=== PATIENT | male | born 1960 | race Caucasian/White ===

== ENCOUNTER 2016-11-15 10:43 | Observation (INO) ==
--- NOTE | 2016-11-15 11:17 | Emergency Department Note ---
Disposition Clinical Impression: KIRA (obstructive sleep apnea), Hypoxia TIA (transient ischemic attack) Qualifiers: Transient cerebral ischemia type: unspecified Qualified Code(s): G45.9 - Transient cerebral ischemic attack, unspecified Disposition: Admitted As Inpatient Condition: Good Referrals: Adam Zapata MD [Primary Care Provider] - Forms: ED Satisfaction Letter Time of Disposition: 13:06 Neuro HPI - General Chief Complaint: ED Fall Stated Complaint: fall Time Seen by Provider: 11/15/16 10:56 Source: patient Limitations: no limitations Nursing Notes Reviewed: Yes Vital Signs Reviewed: Yes - History of Present Illness HPI Narrative: Patient has a past medical history of COPD, wears night oxygen, diabetes, likely undiagnosed sleep apnea, obesity. Presents for evaluation of 4 falls overnight secondary to intermittent loss of tone in the lower extremity. Patient has had 3 prior episodes over the last year which include loss of tone in the left upper and lower extremity. Patient's recent increase in loss of tone happened 4 times overnight causing now for falls. Patient did not hit his head or lose consciousness however, the convinced him to get evaluation this a.m. Upon arrival the patient is mildly tachycardic and hypoxic with a pulse ox of 88%. Patient states that he has home oxygen that he wears at night secondary to a abnormal sleep study. Patient does not wear daily oxygen secondary the fact that he works for [employer] and is unable to work if he wears oxygen. At this time the patient's neuro symptoms have completely resolved. Patient has no neuro deficits on exam. Patient is currently asymptomatic. - Related Data Home Medications: Home Medications Medication Instructions Recorded Confirmed Oxygen 1 each .ROUTE AD 10/15/16 10/15/16 Albuterol Sulfate [Albuterol 2 puff IH Q4H PRN 11/15/16 11/15/16 Inhaler] Amitriptyline [Elavil] 10 mg PO HS PRN 11/15/16 11/15/16 Fenofibrate Nanocrystallized 160 mg PO DAILY 11/15/16 11/15/16 [Triglide] Fish Oil/Dha/Epa [Fish Oil 1,200 1 each PO BID 11/15/16 11/15/16 mg Fish Oil] Furosemide [Lasix] 20 mg PO DAILY PRN 11/15/16 11/15/16 Insulin ASPART [Novolog Flexpen] 35 unit SQ TIDWM 11/15/16 11/15/16 Insulin Glargine,Hum.rec.anlog 50 unit SQ BID 11/15/16 11/15/16 [Lantus Solostar] Lisinopril [Zestril] 40 mg PO DAILY 11/15/16 11/15/16 Pravastatin Sodium [Pravachol] 40 mg PO HS 11/15/16 11/15/16 Ranitidine HCl [Zantac] 300 mg PO QAM 11/15/16 11/15/16 SitaGLIPtin [Januvia] 100 mg PO DAILY 11/15/16 11/15/16 Allergies/Adverse Reactions: Allergies Allergy/AdvReac Type Severity Reaction Status Date / Time No Known Allergies Allergy Unverified 10/15/16 16:28 All systems ED: reviewed and negative except as stated. Constitutional: Denies: fever, chills Cardiovascular: Denies: chest pain, palpitations Respiratory: Denies: cough, dyspnea, wheezes, hemoptysis Gastrointestinal: Denies: abdominal pain, nausea, vomiting Genitourinary: Denies: urgency, dysuria Musculoskeletal: Denies: back pain, neck pain Neurological: Denies: headache, weakness Psychiatric: Denies: anxiety, depression Endocrine: Denies: fatigue Past Medical History - Past Medical History Medical history: Reports: COPD, diabetes Psychiatric history: Reports: no psych history - Social History Smoking Status: Former smoker Smokeless Tobacco Status: Yes (chew) Alcohol use: Reports: none Drug use: Reports: none Physical Exam - General Limitations: no limitations General appearance: alert, in no apparent distress, obese - Head Head exam: atraumatic, normocephalic - Eye Eye exam: Present: normal appearance, PERRL - ENT ENT exam: normal exam, normal oropharynx - Neck Neck exam: Present: normal inspection, full ROM - Chest Chest inspection: Present: normal inspection, symmetric chest wall rise. Absent : tenderness - Respiratory Respiratory exam: Present: normal lung sounds bilaterally. Absent: respiratory distress, wheezes - Cardiovascular Cardiovascular exam: Present: regular rate, normal rhythm - Abdominal Exam Abdominal exam: Present: soft, Non-Tender - Extremities Exam Extremities exam: Present: normal inspection. Absent: tenderness - Back Exam Back exam: Present: normal inspection. Absent: tenderness - Neurological Exam Neurological exam: Present: alert, oriented X3, CN II-XII intact, normal gait. Absent: motor sensory deficit - Expanded Neurological Exam Patient oriented to: Present: person, place, time Speech: Present: fluid speech Cranial nerves: EOM function (II, III, IV, ): Normal, facial sensation (V): Normal, facial palsy (VII): Normal, gag reflex (IX): Normal, spinal accessory function (XI): Normal, tongue deviation (XII): Normal Cerebellar function: finger to nose: Normal, heel to barron: Normal Cerebellar function: normal gait Motor strength - LUE: 5/5 Motor strength - RUE: 5/5 Motor strength - LLE: 5/5 Motor strength - RLE: 5/5 Sensory exam upper extremity: light touch: Normal Sensory exam lower extremity: light touch: Normal Coma Scale Eye Opening: Spontaneous Coma Scale Motor Response: Obeys Commands Coma Scale Verbal Response: Oriented Coma Scale Total: 15 - Psychiatric Psychiatric exam: Present: normal affect, normal mood - Skin Skin exam: Present: warm, dry, intact Course - Reevaluation(s) Reevaluation #1: The case with the hospitalist Dr. BOUCHER, accepted for admission in stable condition. Vital Signs Temperature 97.9 F 11/15/16 10:48 Pulse Rate 104 11/15/16 10:48 Respiratory Rate 18 11/15/16 10:48 Blood Pressure 137/87 11/15/16 10:48 O2 Sat by Pulse Oximetry 88 11/15/16 10:48 Temperature 97.9 F 11/15/16 10:48 Pulse Rate 114 11/15/16 12:59 Respiratory Rate 24 11/15/16 12:59 Blood Pressure 116/62 11/15/16 12:59 O2 Sat by Pulse Oximetry 95 11/15/16 12:59 Oxygen Delivery Oxygen Delivery Nasal Cannula Neuro Symptoms/Deficit - Medical Records Medical records reviewed: Yes I reviewed the patient's medical records. - Lab Data Lab results reviewed: Yes I reviewed the patient's lab results. Result diagrams: 11/15/16 11:23 11/15/16 11:23 Lab Results 11/15/16 11/15/16 11/15/16 Range/Units 11:23 11:23 11:23 WBC 8.3 (4.3-11.1) K/mcL RBC 5.08 (4.19-5.50) M/mcL Hgb 14.4 (12.9-16.9) g/dL Hct 47.8 (37.5-50.1) % MCV 94.1 (83.0-100.0) fL MCH 28.3 (28.0-33.3) pg MCHC 30.1 L (31.6-35.5) g/dL RDW 15.5 H (11.5-14.5) % Plt Count 127 L (140-400) K/mcL MPV 10.6 (9.4-12.4) fL Immature Gran % 1.3 (0-4) % Seg Neutrophils % 73.9 % Lymphocytes % 18.1 % Monocytes % 5.7 % Eosinophils % 0.8 % Basophils % 0.2 % Neutrophils # 6.1 (1.6-8.9) K/mcL Lymphocytes # 1.5 (0.6-4.6) K/mcL Monocytes # 0.5 (0.0-1.3) K/mcL Eosinophils # 0.1 (0.0-0.6) K/mcL Basophils # 0.0 (0.0-0.2) K/mcL Sodium 141 (136-145) mEq/L Potassium 3.8 (3.5-4.5) mEq/L Chloride 98 (98-109) mEq/L Carbon Dioxide 36 H (19-29) mEq/L BUN 15 (8-26) mg/dL Creatinine 0.79 (0.72-1.25) mg/dL Est GFR ( Amer) > 60 (> 60) Est GFR (Non-Af Amer) > 60 (> 60) BUN/Creatinine Ratio 19 (6-26) Glucose 158 H (70-99) mg/dL Calculated Osmolality 296 (280-300) Calcium 9.1 (8.6-10.8) mg/dL Troponin I 0.02 (0-0.03) ng/mL B-Natriuretic Peptide (0-100) pg/mL 11/15/16 Range/Units 11:25 WBC (4.3-11.1) K/mcL RBC (4.19-5.50) M/mcL Hgb (12.9-16.9) g/dL Hct (37.5-50.1) % MCV (83.0-100.0) fL MCH (28.0-33.3) pg MCHC (31.6-35.5) g/dL RDW (11.5-14.5) % Plt Count (140-400) K/mcL MPV (9.4-12.4) fL Immature Gran % (0-4) % Seg Neutrophils % % Lymphocytes % % Monocytes % % Eosinophils % % Basophils % % Neutrophils # (1.6-8.9) K/mcL Lymphocytes # (0.6-4.6) K/mcL Monocytes # (0.0-1.3) K/mcL Eosinophils # (0.0-0.6) K/mcL Basophils # (0.0-0.2) K/mcL Sodium (136-145) mEq/L Potassium (3.5-4.5) mEq/L Chloride (98-109) mEq/L Carbon Dioxide (19-29) mEq/L BUN (8-26) mg/dL Creatinine (0.72-1.25) mg/dL Est GFR ( Amer) (> 60) Est GFR (Non-Af Amer) (> 60) BUN/Creatinine Ratio (6-26) Glucose (70-99) mg/dL Calculated Osmolality (280-300) Calcium (8.6-10.8) mg/dL Troponin I (0-0.03) ng/mL B-Natriuretic Peptide < 10 (0-100) pg/mL - Radiology Data Radiology results reviewed: Yes I reviewed the patient's radiology results. - EKG Data EKG attestation: Yes I reviewed and interpreted this EKG. EKG results narrative: Patient's EKG shows sinus rhythm with ventricular rate of 76. PA interval 146. QRS 114. Patient has no specific ST elevations or depressions. Patient does have nonspecific ST-T wave changes to leads 3 and aVF and aVL. No previous EKG for comparison. TPA Checklist - LKW: 3-4.5 hrs Add. Contraindications Patient/family understanding: The patient/family members have been counseled and understood the risk, benefit , and alternatives of treatment.
[2016-11-15 11:30] LABS: Basophils % 0.2 %; Eosinophils # 0.1 K/mcL (0.0-0.6); Eosinophils % 0.8 %; Hematocrit 47.8 % (37.5-50.1); Hemoglobin 14.4 g/dL (12.9-16.9); Immature Granulocytes % 1.3 % (0-4); Lymphocytes # 1.5 K/mcL (0.6-4.6); Lymphocytes % 18.1 %; Mean Corpuscular HGB Conc 30.1 g/dL (31.6-35.5); Mean Corpuscular Hemoglobin 28.3 pg (28.0-33.3); Mean Corpuscular Volume 94.1 fL (83.0-100.0); Mean Platelet Volume 10.6 fL (9.4-12.4); Monocytes # 0.5 K/mcL (0.0-1.3); Monocytes % 5.7 %; Neutrophils # 6.1 K/mcL (1.6-8.9); Platelet Count 127 K/mcL (140-400); Red Blood Count 5.08 M/mcL (4.19-5.50); Red Cell Distribution Width 15.5 % (11.5-14.5); Segmented Neutrophils % 73.9 %
[2016-11-15 11:42] LABS: BUN/Creatinine Ratio 19 (6-26); Blood Urea Nitrogen 15 mg/dL (8-26); Calcium 9.1 mg/dL (8.6-10.8); Carbon Dioxide 36 mEq/L (19-29); Chloride 98 mEq/L (98-109); Glucose 158 mg/dL (70-99); Osmolality,Calculated 296 (280-300); Potassium 3.8 mEq/L (3.5-4.5); Sodium 141 mEq/L (136-145); eGFR For African Americans > 60 (> 60); eGFR For Non-African Americans > 60 (> 60)
--- NOTE | 2016-11-15 11:44 | Emergency Department Note ---
START Narrative - START START: I examined this patient and my medical decision-making was reviewed with the FAGOT HEATER HELPER/PA/Advanced Practice Nurse/Resident Physician. I agree with the documented findings, disposition and treatment plan as described except to the extent set forth below. ED attending note: Patient seen with emergency medicine resident Dr Urbano. We independently evaluated the patient. We independently had [id number] contact with the patient. Please see a copy of his note for details of the history and physical, evaluation, management and disposition of this emergency Department patient. Briefly: A 56-year-old male presents with multiple falls and hypoxia. Has likely undiagnosed obstructive sleep apnea. Has had no formal workup for what appears to be syncopal episodes. Patient is neurologically nonfocal at this time. Imaging and blood work are pending. EKG shows some EKG changes but no old EKG available for comparison. Disposition pending but admission anticipated. Provided 35 minutes of critical care service for this patient.
[2016-11-15] MEDS ORDERED: Ipratropium/Albuterol Neb 3 ML IH ONE (12:52)
[2016-11-15] MEDS ORDERED: *HR* HYDROcodone/Acet 5/325 mg TABLET PO PRN (15:10)
[2016-11-15] MEDS ORDERED: Naloxone 0.4 MG/ML INJ IVP PRN (15:10)
[2016-11-15] MEDS ORDERED: *HR* Dextrose 50 % in Water (Syg) 50 ML SYRINGE IVP PRN (15:17)
[2016-11-15] MEDS ORDERED: D5% in Water 1,000 ML IVC PRN (15:17)
[2016-11-15] MEDS ORDERED: Dextrose Gel 15 GM PO PRN ×2 (15:17)
[2016-11-15] MEDS ORDERED: Albuterol 2.5 MG/3 ML NEBULIZER IH PRN (15:18)
--- NOTE | 2016-11-15 15:57 | Internal Med History&Physical ---
Date of Encounter: 11/15/16 Time of Encounter: 14:00 Assessment and Plan (1) Acute and chronic respiratory failure with hypoxia Current visit: Yes Status: Acute Patient has history of COPD uses supplemental oxygen at night only as well as rescue inhalers. Patient has been experiencing frequent falls on presentation he was hypoxic at 88% on 3 L nasal cannula patient SPO2 drops to 88-90% during conversation we will continue with oxygen titrated to maintain SPO2 greater than 92% 2 bronchodilators as needed 3 continuous SPO2 monitoring 4 we will consult pulmonary- spoke with Dr Perdomo who request office to be notified in a.m. consult (2) Recurrent falls Current visit: Yes Status: Acute 1atient has been experiencing repeated falls only at night when he awakens to go to the bathroom or to get something to drink he will feel anxious and then collapsed. Does not lose consciousness, he has a tremor, lower extremity weakness. This has been going on for approximately year however have not [address] of head is negative Suspect possible narcolepsy / cataplexy. 2 he does complain of lower extremity weakness-consulted neurology. Spoke with Dr. Angelo he states he will see patient tomorrow request patient be started on aspirin 3 place patient on fall precautions 4 continue his cardiac monitoring continuous SPO2 monitoring (3) COPD (chronic obstructive pulmonary disease) Current visit: Yes Status: Chronic 1 we will continue with oxygen titrated to maintain SPO2 greater than 92% 2 bronchodilators as needed 3 continuous SPO2 monitoring Qualifiers: COPD type: unspecified COPD Qualified Code(s): J44.9 - Chronic obstructive pulmonary disease, unspecified (4) HTN (hypertension) Current visit: Yes Status: Chronic 1 goal is to maintain systolic less than 140 2 low sodium diet Qualifiers: Hypertension type: essential hypertension Qualified Code(s): I10 - Essential (primary) hypertension (5) Diabetes mellitus Current visit: Yes Status: Chronic 1 patient admits that he is not compliant with diabetes does not check sugars regularly and that blood sugars often range around 200. Accu-Cheks before meals at bedtime with sliding scale as well as basal insulin goal is to maintain postprandial less than 180 2 diabetic diet 3 diabetic education Qualifiers: Diabetes mellitus type: type 2 Diabetes mellitus complication status: without complication Diabetes mellitus exterminator insulin use: with mcfp use Qualified Code(s): E11.9 - Type 2 diabetes mellitus without complications ; Z79.4 - FPC (current) use of insulin (6) KIRA (obstructive sleep apnea) Current visit: Yes Status: Chronic 1 patient has a history of obstructive sleep apnea however he does not wear BiPAP at night. He is on oxygen at 3 L nasal cannula. He is unable to sleep in the bed he sleeps in a recliner. We will continue with oxygen titrating to maintain SPO2 greater 92%. 2 continuous pulse ox continuous cardiac monitoring 3 advise patient not to operate heavy machinery or drive when feeling sleepy during the day (7) DVT prophylaxis Current visit: Yes Status: Acute 1lovenox Internal Medicine - H&P: HPI Chief complaint: Falls Admitted From: Emergency Dept Plans for Post Hospital Care: Home History of present illness: Mr. Yin is a 56 year old male past uncle history of hypertension diabetes COPD and obstructive sleep apnea. According to the patient for approximate 1 year the patient with awaken during the night to either go to the bathroom or get something to drink once he would make it to his destination or as he was on his way he would feel anxious and then collapse. He denies any loss of consciousness or incontinence of bowel or bladder. His has witnessed the patient fall she states that he does have some extremity tremoring. The patient admits to lower extremity weakness and needs assistance to stand Once he is assisted back to standing he returns to baseline. According to the patient he has a history of obstructive sleep apnea he was advised to use CPAP however he is only on 3L oxygen at night. He sleeps in a recliner unable to lie flat He also has history of COPD with inhaler use. He denies using oxygen during the day however his states that he does use his oxygen in the evening when he gets home from work. Patient denies any cough sputum production chest pain nausea vomiting diarrhea fevers or chills. He does admit to exertional shortness of breath. Last night the patient had 4 episodes of falling during the night, he came to the ER today for evaluation. According to ER records Upon arrival the patient was mildly tachycardic and hypoxic with a pulse ox of 88%. Lab work was unremarkable BMP was less than [address] of head was negative for any intracranial abnormalities. EKG nonspecific ST-T wave changes to leads 3 and aVF and aVL. Patient has been admitted for further workup and evaluation. Presently upon assessment patient is alert oriented appropriate follow simple commands cranial nerves II through XII are intact. Lung sounds clear, heart sounds S1 and S2 with no rubs clicks gallops or murmurs noted. No extremity edema noted. SPO2 on 3 L nasal cannula 90% during conversation up to 95% at rest. Patient denies any chest pain or shortness of breath this time. 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[employer].instructed the patient not to drive or operate heavy machinery when feeling fatigued or sleepy I reviewed this case with who agrees with plan Past Med Surg Social Fam HX - Past Medical History Medical history: COPD, diabetes Psychiatric history: no psych history - Social History Smoking Status: Former smoker Smokeless Tobacco Status: Yes (chew) Alcohol use: none Drug use: none - Family History Sister Hx Family Neurologic Disorders: Yes (CVA) Internal Medicine - H&P: Meds Oxygen 1 each .ROUTE AD 10/15/16 [History] Albuterol Sulfate [Albuterol Inhaler] 2 puff IH Q4H PRN 11/15/16 [History] Amitriptyline [Elavil] 10 mg PO HS PRN 11/15/16 [History] Fenofibrate Nanocrystallized [Triglide] 160 mg PO DAILY 11/15/16 [History] Fish Oil/Dha/Epa [Fish Oil 1,200 mg Fish Oil] 1 each PO BID 11/15/16 [History] Furosemide [Lasix] 20 mg PO DAILY PRN 11/15/16 [History] Insulin ASPART [Novolog Flexpen] 35 unit SQ TIDWM 11/15/16 [History] Insulin Glargine,Hum.rec.anlog [Lantus Solostar] 50 unit SQ BID 11/15/16 [ History] Lisinopril [Zestril] 40 mg PO DAILY 11/15/16 [History] Pravastatin Sodium [Pravachol] 40 mg PO HS 11/15/16 [History] Ranitidine HCl [Zantac] 300 mg PO QAM 11/15/16 [History] SitaGLIPtin [Januvia] 100 mg PO DAILY 11/15/16 [History] Allergies No Known Allergies Allergy (Unverified 10/15/16 16:28) All Systems PM: A 10-system review of systems was performed and is negative for pertinent findings except as documented above in the HPI. - Constitutional Constitutional: no chills, no fever(s), no night sweats - EENT Eyes: no change in vision, no discharge, no pain, no photophobia Nose, mouth and throat: no dysphagia, no nasal discharge, no neck pain, no sore throat - Cardiovascular Cardiovascular ROS IM: dyspnea on exertion, orthopnea, syncope, no chest pain, no diaphoresis, no dyspnea, no lightheadedness, no palpitations - Respiratory Respiratory: no cough, no dyspnea, no wheezing, no excessive phlegm production - Gastrointestinal Gastrointestinal: no abdominal pain, no diarrhea, no hematemesis, no hematochezia, no melena, no nausea, no vomiting - Musculoskeletal Musculoskeletal ROS IM: no numbness, no tingling - Integumentary Integumentary IM: no rash, no unusual bruising - Neurological Neurological ROS: frequent falls, weakness, no confusion, no convulsions, no focal weakness, no numbness, no tingling, no tremor(s) - Hematologic/Lymphatic Hematologic/Lymphatic: no easy bruising - Constitutional Vitals: Temp Pulse Resp BP Pulse Ox 97.9 F 81 14 114/68 92 11/15/16 10:48 11/15/16 14:16 11/15/16 14:55 11/15/16 14:55 11/15/16 14:16 General appearance: Present: A&O X 3 - Head Head exam: Present: atraumatic, normocephalic - Neck Neck exam general surgery: Present: supple, trachea midline. Absent: lymphadenopathy - Respiratory Respiratory exam: Present: CTAB. Absent: accessory muscle use, rales, rhonchi, wheezes - Cardiovascular Cardiovascular exam: Present: RRR, +S1, +S2. Absent: diastolic murmur, gallop, rubs, systolic murmur - GI/Abdominal GI/Abdominal exam: Present: normal bowel sounds, soft, no peritoneal signs. Absent: distended, tenderness - Extremities Exam Extremities exam: Present: warm, radial pulses palpable and symetrical. Absent : calf tenderness, cyanotic, pedal edema - Neurological Exam Neurological exam: Present: CN II-XII intact, oriented X3, no focal deficits. Absent: pronater drift, facial droop, speech deficit - Skin Skin exam: Present: dry, intact Internal Med - H&P Results - Labs CBC & Chem 7: 11/15/16 11:23 11/15/16 11:23 - EKG Data EKG shows normal: sinus rhythm - EKG Data Prior EKG available for review: no - Diagnostic Studies CT scan - head Additional comments: Chest X-Ray 11/15/16 11:12 IMPRESSION: Stable chest with no acute cardiopulmonary process. D/ / Rj Alfaro MD / Rj Alfaro MD Interpreting Provider: Rj Alfaro MD Head CT 11/15/16 11:13 IMPRESSION: No acute intracranial abnormality. D/ / Rj Alfaro MD / Rj Alfaro MD Interpreting Provider: Rj Alfaro MD
[2016-11-15 18:22] LABS: Bilirubin,Urine Negative (Negative); Blood,Urine Negative (Negative); Clarity,Urine Clear (Clear); Color,Urine Yellow (Yellow); Glucose,Urine (UA) 100 mg/dL (Normal); Ketones,Urine Negative (Negative); Leukocyte Esterase,Urine Negative (Negative); Nitrite,Urine Negative (Negative); Protein,Urine 30 mg/dL (Neg-Trace); Specific Gravity,Urine 1.027 (1.010-1.025); Urobilinogen,Urine Normal (Normal)
[2016-11-15 18:24] LABS: Bacteria,Urine None Seen per hpf (None-Few); Hyaline Casts,Urine None Seen per lpf (None-Few); Squamous Epithelial Cell,Urine Many per lpf (None-Few); WBC,Urine 0-3 per hpf (0-3)
[2016-11-15] MEDS: Aspirin 325 MG TABLET PO SCH (18:46)
[2016-11-15] MEDS: Insulin LISPRO 300 UNITS/3 ML VIAL SQ SCH ×3 (18:46→21:13)
[2016-11-15] MEDS: Insulin DETEMIR 100 UNIT/ML X5UNITS SQ SCH (21:11)
[2016-11-15] MEDS: (Fish Oil/Dha/Epa [Fish Oil 1,200 Mg Fish Oil] 1 EACH) PO SCH (21:13)
[2016-11-16 01:28] LABS: Basophils % 0.5 %; Eosinophils # 0.1 K/mcL (0.0-0.6); Eosinophils % 1.4 %; Hematocrit 46.6 % (37.5-50.1); Hemoglobin 13.7 g/dL (12.9-16.9); Immature Granulocytes % 1.1 % (0-4); Lymphocytes # 1.6 K/mcL (0.6-4.6); Lymphocytes % 24.2 %; Mean Corpuscular HGB Conc 29.4 g/dL (31.6-35.5); Mean Corpuscular Hemoglobin 28.1 pg (28.0-33.3); Mean Corpuscular Volume 95.5 fL (83.0-100.0); Mean Platelet Volume 11.1 fL (9.4-12.4); Monocytes # 0.5 K/mcL (0.0-1.3); Monocytes % 6.9 %; Neutrophils # 4.4 K/mcL (1.6-8.9); Platelet Count 126 K/mcL (140-400); Red Blood Count 4.88 M/mcL (4.19-5.50); Red Cell Distribution Width 15.9 % (11.5-14.5); Segmented Neutrophils % 65.9 %
[2016-11-16 01:39] LABS: BUN/Creatinine Ratio 21 (6-26); Blood Urea Nitrogen 17 mg/dL (8-26); Carbon Dioxide 36 mEq/L (19-29); Chloride 96 mEq/L (98-109); Potassium 3.7 mEq/L (3.5-4.5); Sodium 141 mEq/L (136-145)
[2016-11-16 01:40] LABS: Calcium 8.9 mg/dL (8.6-10.8); Glucose 200 mg/dL (70-99); Osmolality,Calculated 299 (280-300); eGFR For African Americans > 60 (> 60); eGFR For Non-African Americans > 60 (> 60)
[2016-11-16 02:34] LABS: Hemoglobin A1C 8.5 %
[2016-11-16] MEDS: *HR* Enoxaparin 40 MG/0.4 ML SYRINGE SQ SCH (06:08)
[2016-11-16] MEDS ORDERED: *HR* Metformin 500 MG TABLET PO SCH (08:00)
[2016-11-16] MEDS ORDERED: Perflutren Lipid Microsphere 1.3 ML in 0.9 % Sodium Chloride 8.7 ML IVP ONE (08:06)
[2016-11-16] MEDS: Insulin LISPRO 300 UNITS/3 ML VIAL SQ SCH ×4 (09:17→21:19)
[2016-11-16] MEDS: (Fish Oil/Dha/Epa [Fish Oil 1,200 Mg Fish Oil] 1 EACH) PO SCH (09:18)
[2016-11-16] MEDS: Aspirin 325 MG TABLET PO SCH (09:23)
[2016-11-16] MEDS: Lisinopril 20 MG TABLET PO SCH (09:23)
[2016-11-16] MEDS: Famotidine 20 MG TABLET PO SCH (09:23)
[2016-11-16] MEDS: Insulin DETEMIR 100 UNIT/ML X5UNITS SQ SCH ×2 (09:24→21:17)
[2016-11-16] MEDS: Fenofibrate 54 MG TABLET PO SCH (09:24)
--- NOTE | 2016-11-16 12:08 | ECHO - Doppler Report ---
Echo with Imaging Enhancement Agent Name: Jonathon Yin Date of Study: 11/16/2016 Date: 1960 Ht: 69.0 in Medical Record#: [id number] Age: 56 Wt: 299.0 lb Gender: Male BSA: 2.45 Order #: [id number] Location: [facility] Room #: [id number] Reading Physician: Nikole Jacobson DO Vp Platforms: Magali Negron Ordering Physician: Isabel Duckworth CNP Primary Physician: Adam Zapata MD Indications: falls Impressions: LVEF 65%. Normal left ventricular size and systolic function. Normal diastolic function of the left ventricle. Normal right ventricular size and function. No significant valvular dysfunction. No pulmonary hypertension. Left Ventricular Wall Motion: Rest Echo Findings All wall segments showed normal motion. Findings: Study Quality * Technically sub-optimal due to body habitus. ECG Findings * Normal sinus rhythm. Left Ventricle * Normal left ventricular diastolic function. * Normal LV chamber size, wall thickness and function. * LVEF 65%. * Definity echo contrast was used. Aorta * Normally sized aortic root. Left Atrium * Normal left atrial size. Mitral Valve * Normal mitral valve structure. * No mitral stenosis. * Trace mitral regurgitation. Aortic Valve * No aortic regurgitation. * Aortic valve not well visualized. * No aortic stenosis. Tricuspid Valve * Tricuspid valve not well visualized. * No tricuspid regurgitation. Pulmonic Valve * Pulmonic valve is not well visualized. * No pulmonic stenosis. * Trace pulmonic regurgitation. Pulmonary Artery * Pulmonary artery not well visualized. Right Ventricle * Normal right ventricular structure and function. Right Atrium * Normal right atrial size. Interatrial Septum * Interatrial septum not well evaluated. Pericardium * There is no pericardial effusion present. IVC * The IVC is not well evaluated. History Hypertension Diabetes Myocardial Infarction 11/08/14 a Previous Echo was performed. Contrast: Definity 1.3 ml in 8.7 ml of saline 2 ml. Measurements: BP: 123/ 68 2D Normal Values RVIDd: 3.50 cm <2.7 cm IVSd: 1.70 cm 0.6 - 1.0 cm LVIDd: 5.50 cm 3.7 - 5.6 cm LVPWd: 1.30 cm 0.6 - 1.1 cm LVIDs: 3.50 cm 1.5 - 3.6 cm AO: 2.70 cm < 4.0 cm LA: 3.90 cm 2.0 - 4.0cm %FS: 36.40 cm >25 % LA volume: 47 Mitral Valve Peak E:1.03 m/sec Peak A:.74 m/sec E/A Ratio:1.4 Peak E' Lat Fernandez:15.4 cm/s Peak E' Med Fernandez:7.8 cm/s E/E' Lat Ratio:6.7 E/E' Med Ratio:13.2 Tricuspid Valve TV Regurg Peak Grad: 9.00mmHg TV Regurg Peak Fernandez: 1.48m/sec Updated by Nikole Jacobson on 11/16/2016 12:02:13 PM electronically signed on 11/16/2016 12:02:40 PM with status of Final Wall Motion Shultz: 1=Normal, 2=Hypokinesis, 3=Akinesis, 4=Dyskinesis, 5=Aneurysmal, 6=Hyperkinetic, X=Not Visualized (Blank)=Missing
--- NOTE | 2016-11-16 12:11 | Internal Med Progress Note ---
<Abhi Alva - Last Filed: 11/16/16 12:06> Date of Encounter: 11/16/16 Time of Encounter: 08:15 - Assessment and plan (1) Acute and chronic respiratory failure with hypoxia Current Visit: Yes Status: Acute Assessment and plan: Likely multifactoral in the setting of COPD, KIRA, obesity, and non compliance with co-morbidities. Patient has history of COPD and KIRA; only uses supplemental oxygen at night and rescue inhalers. Patient has been experiencing frequent falls, on presentation he was hypoxic at 88% on 3 L nasal cannula patient. Bronchodilators as needed Continuous SPO2 monitoring ABG pending. Trial of BiPAP tonight, will likely need CPAP (and sleep study) as outpatient. (2) KIRA (obstructive sleep apnea) Current Visit: Yes Status: Chronic Assessment and plan: Family states patient sleeps sitting up in recliner, sometime falls asleep while talking/interacting with others at home. Patient has a history of obstructive sleep apnea however does not wear CPAP/ BiPAP at night. He is on oxygen at 3 L nasal cannula. Continuous pulse ox, continuous cardiac monitoring Patient advised to not operate heavy machinery or drive when feeling sleepy during the day (3) Recurrent falls Current Visit: Yes Status: Acute Assessment and plan: hypoxia vs TIA Pending echo and carotid doppler studies. Hx of KIRA, not on CPAP. (4) Diabetes mellitus Current Visit: Yes Status: Chronic Assessment and plan: Patient states he does not take metformin. Will work to monitor and adjust insulin for better glycemic control. A1C 8.5. Qualifiers: Diabetes mellitus type: type 2 Diabetes mellitus complication status: without complication Diabetes mellitus shelter insulin use: with intermediate manager use Qualified Code(s): E11.9 - Type 2 diabetes mellitus without complications ; Z79.4 - long term care pharmacist (current) use of insulin - Time Spent With Patient 25 - 35 minutes - Subjective Interval history: Mr. Yin appears tired on exam, but easily arousable. He notes Hx of KIRA, however due to noncompliance he is only on O2 at night and as needed. - Constitutional Vitals: Temp Pulse Resp BP Pulse Ox 98.1 F 87 18 123/68 93 11/16/16 04:20 11/16/16 04:20 11/16/16 04:20 11/16/16 04:20 11/16/16 04:58 General appearance: Present: cooperative, A&O X 3, no acute distress, answers questions appropriately - Head Head exam: Present: atraumatic, normocephalic - Eye Eye exam: Present: EOMI, conjuntiva pink - ENT ENT exam: Present: mucous membranes moist - Neck Neck exam general surgery: Present: full ROM - Respiratory Respiratory exam: Present: decreased breath sounds, CTAB - Cardiovascular Cardiovascular exam: Present: tachycardia. Absent: irregular rhythm - GI/Abdominal GI/Abdominal exam: Present: distended, hernia (vs distasis recti). Absent: firm , guarding, tenderness - Extremities Exam Extremities exam: Present: warm. Absent: cyanotic - Neurological Exam Neurological exam: Present: alert, oriented X3, no focal deficits - Psychiatric Psychiatric exam: Present: normal affect, normal mood - Skin Skin exam: Present: dry, normal color, warm Internal Medicine: Result - Labs CBC & Chem 7: 11/16/16 00:55 11/16/16 00:55 Labs: Short CBC 11/16/16 Range/Units 00:55 WBC 6.6 (4.3-11.1) K/mcL Hgb 13.7 (12.9-16.9) g/dL Hct 46.6 (37.5-50.1) % Plt Count 126 L (140-400) K/mcL Neutrophils # 4.4 (1.6-8.9) K/mcL BMP 11/16/16 00:55 Sodium 141 Potassium 3.7 Chloride 96 L Carbon Dioxide 36 H BUN 17 Creatinine 0.80 Glucose 200 H Calcium 8.9 Cardiac Enzymes 11/15/16 11/16/16 Range/Units 18:50 00:55 Troponin I 0.00 0.01 (0-0.03) ng/mL Urine 11/15/16 Range/Units 18:11 Urine Color Yellow (Yellow) Urine Clarity Clear (Clear) Urine pH 6.0 (5.0-8.0) pH Units Ur Specific [place] 1.027 H (1.010-1.025) Urine Protein 30 H (Neg-Trace) mg/dL Urine Glucose (UA) 100 H (Normal) mg/dL Consult Discharge Plan - Plan Referrals: Adam Zapata MD [Primary Care Provider] - <Mukund Santiago - Last Filed: 11/16/16 16:53> Date of Encounter: 11/16/16 - Assessment and plan (1) Acute on chronic respiratory failure with hypercapnia Current Visit: Yes Status: Acute (2) Acute and chronic respiratory failure with hypoxia Current Visit: Yes Status: Acute (3) KIRA (obstructive sleep apnea) Current Visit: Yes Status: Chronic (4) COPD (chronic obstructive pulmonary disease) Current Visit: Yes Status: Suspected Qualifiers: COPD type: emphysema Emphysema type: panlobular Qualified Code(s): J43.1 - Panlobular emphysema (5) HTN (hypertension) Current Visit: Yes Status: Chronic Qualifiers: Hypertension type: essential hypertension Qualified Code(s): I10 - Essential (primary) hypertension (6) Diabetes mellitus Current Visit: Yes Status: Chronic Qualifiers: Diabetes mellitus type: type 2 Diabetes mellitus complication status: without complication Diabetes mellitus intermediate manager insulin use: with intermediate manager use Qualified Code(s): E11.9 - Type 2 diabetes mellitus without complications ; Z79.4 - long term care pharmacist (current) use of insulin - Constitutional Vitals: Temp Pulse Resp BP Pulse Ox 98.1 F 76 22 125/73 98 11/16/16 04:20 11/16/16 16:00 11/16/16 16:14 11/16/16 16:00 11/16/16 16:14 Internal Medicine: Result - Labs CBC & Chem 7: 11/16/16 00:55 11/16/16 00:55 Labs: Short CBC 11/16/16 Range/Units 00:55 WBC 6.6 (4.3-11.1) K/mcL Hgb 13.7 (12.9-16.9) g/dL Hct 46.6 (37.5-50.1) % Plt Count 126 L (140-400) K/mcL Neutrophils # 4.4 (1.6-8.9) K/mcL BMP 11/16/16 00:55 Sodium 141 Potassium 3.7 Chloride 96 L Carbon Dioxide 36 H BUN 17 Creatinine 0.80 Glucose 200 H Calcium 8.9 Cardiac Enzymes 11/15/16 11/16/16 Range/Units 18:50 00:55 Troponin I 0.00 0.01 (0-0.03) ng/mL Urine 11/15/16 Range/Units 18:11 Urine Color Yellow (Yellow) Urine Clarity Clear (Clear) Urine pH 6.0 (5.0-8.0) pH Units Ur Specific Gap 1.027 H (1.010-1.025) Urine Protein 30 H (Neg-Trace) mg/dL Urine Glucose (UA) 100 H (Normal) mg/dL - ABG Interpretation ABG results: ABG ABG pH 7.29 pH Units (7.32-7.45) L 11/16/16 13:15 ABG pCO2 95 mmHg (35-45) H* 11/16/16 13:15 ABG pO2 66 mmHg (85-104) L 11/16/16 13:15 ABG O2 Saturation 90 % (95-98) L 11/16/16 13:15 - Attending Attestation I examined this patient and my medical decision-making was reviewed with the Resident Physician on 11/16/16. I agree with the documented findings, disposition and treatment plan as described except to the extent set forth below. Mr. Yin is currently admitted for acute hypoxic resp failure. He is moderate to high risk due to potential for worsening respiratory status. Mr. Yin denies issues and wants to go home. He had abg showing acute hypercarbic resp failure. He is willing to try bipap with large facemask. No fever or chills. No GI symptoms. Exam Alert. Comfortable No wheeze Heart reg I/P 1. Resp failure 2. KIRA 3. DM Further diagnoses and plan as above.
[2016-11-16 13:20] LABS: ABG Base Excess 14.1 mEq/L (-2.0 to 3.0); ABG HCO3 45.7 mEQ/L (21-27); ABG Oxygen Saturation 90 % (95-98); ABG PH 7.29 pH Units (7.32-7.45); ABG PO2 66 mmHg (85-104); ABG TCO2 48.6 mEq/L (20-26)
[2016-11-16 13:23] LABS: ABG PCO2 95 mmHg (35-45); Blood Gas FiO2 32 %; Blood Gas Liter Flow 3 L/MIN
--- NOTE | 2016-11-16 16:00 | Neurology - Consult Note ---
Date of Encounter: 11/16/16 Time of Encounter: 15:58 Assessment and Plan (1) Recurrent falls Current Visit: Yes Status: Acute My differential in this case might include a subtle lacunar infarct, but also like to rule out the possibility of hypnic jerks. Would also like to consider the possibility of myoclonic jerks secondary to elevated CO2. CT scan of the brain was negative. I would like to obtain an MRI scan of the brain with diffusion imaging. I did strongly encourage Mr. Yin to be compliant with his sleep apnea device. I will reevaluate him tomorrow. History of Present Illness HPI: Mr. Yin is a 56 year old male who is being seen for neurologic evaluation secondary to recent episodes of falls. He informs me that all of last year he had maybe 1 or 2 falls. However this Wednesday "he states that he had about 4 falls. He denies any arm or leg weakness. Denies decreased levels of consciousness. He denied any numbness or tingling or weakness of the face arms or legs. Denies any speech difficulty. He does state that he has diabetic neuropathy. She also complains of jerking before he falls. He does not lose consciousness however. He states that he is to call so that he can reach something to pull himself up. The episodes are fairly abrupt without warning. He has been diagnosed with sleep apnea however has not been compliant with wearing his CPAP. He denies any difficulty with urinary incontinence. The episodes tend to occur primarily at night when he gets up perhaps to go to the bathroom. He does notice she chokes sometimes as he is falling to sleep. Blood gas revealed that his CO2 was significantly elevated at 92. He is awake and alert, gives a very lucid history. CT scan of the brain reveals no acute abnormalities. Past Med Surg Social Fam HX - Past Medical History Medical history: COPD, diabetes Psychiatric history: no psych history - Social History Smoking Status: Former smoker Smokeless Tobacco Status: Yes (chew) Alcohol use: none Drug use: none - Family History Sister Hx Family Neurologic Disorders: Yes (CVA) Medications and Allergies Oxygen 1 each .ROUTE AD 10/15/16 [History] Albuterol Sulfate [Albuterol Inhaler] 2 puff IH Q4H PRN 11/15/16 [History] Amitriptyline [Elavil] 10 mg PO HS PRN 11/15/16 [History] Fenofibrate Nanocrystallized [Triglide] 160 mg PO DAILY 11/15/16 [History] Fish Oil/Dha/Epa [Fish Oil 1,200 mg Fish Oil] 1 each PO BID 11/15/16 [History] Furosemide [Lasix] 20 mg PO DAILY PRN 11/15/16 [History] Insulin ASPART [Novolog Flexpen] 35 unit SQ TIDWM 11/15/16 [History] Insulin Glargine,Hum.rec.anlog [Lantus Solostar] 50 unit SQ BID 11/15/16 [ History] Lisinopril [Zestril] 40 mg PO DAILY 11/15/16 [History] Pravastatin Sodium [Pravachol] 40 mg PO HS 11/15/16 [History] Ranitidine HCl [Zantac] 300 mg PO QAM 11/15/16 [History] SitaGLIPtin [Januvia] 100 mg PO DAILY 11/15/16 [History] Allergies No Known Allergies Allergy (Unverified 10/15/16 16:28) All Systems: A 10-system review of systems was performed and is negative for pertinent findings except as documented above in the HPI. Review of Systems: Temporal review of systems is consistent with a history of present illness and is otherwise negative. Physical Examination - Vital Signs Vital Signs: Initial Vital Signs Temp Pulse Resp BP Pulse Ox 97.9 F 104 18 137/87 88 11/15/16 10:48 11/15/16 10:48 11/15/16 10:48 11/15/16 10:48 11/15/16 10:48 - Neurologic Detailed motor examination: full strength in all major muscle groups Motor examination - right side: 5/5: deltoids, biceps, triceps, wrist flexion, wrist extension, desk top publisher, hip flexors, tibialis Anterior, quadriceps, toe extension (EHL), plantarflexion Motor examination - left side: 5/5: deltoids, biceps, triceps, wrist flexion, wrist extension, hip flexors, desk top publisher, quadriceps, tibialis Anterior, toe extension (EHL), plantarflexion Reflexes: Biceps: 2+, Triceps: 2+, Brachioradialis: 2+, Patella: 0, Achilles: 0 Mental Status Examination: awake, alert, oriented to person, oriented to place, oriented to time, follows commands appropriately, answers questions appropriately, no agnosia, no aphasia, no aproxia Cranial nerve examination: PERRL, EOMI, visual dacosta intact, corneal reflexes brisk symmetrically, sensory to face intact, mastication intact, no facial asymmetry is present, no dysarthria, hearing is intact symmetrically, soft palate elevates bilaterally upon phonation, gag reflex intact, flexes SCM and trapezius muscles symmetrically with full power, tongue protrudes midline, no atrophy or facial fasiculations present Cerebellar examination: no dysmetria, performs finger to nose and heel to barron symmetrically without ataxia, no gait ataxia, no truncal ataxia, no difficulty with rapid alternating movements Results - Laboratory Findings CBC and BMP: 11/16/16 00:55 11/16/16 00:55 Abnormal lab findings: Abnormal lab results MCHC 29.4 g/dL (31.6-35.5) L 11/16/16 00:55 RDW 15.9 % (11.5-14.5) H 11/16/16 00:55 Plt Count 126 K/mcL (140-400) L 11/16/16 00:55 ABG pH 7.29 pH Units (7.32-7.45) L 11/16/16 13:15 ABG pCO2 95 mmHg (35-45) H* 11/16/16 13:15 ABG pO2 66 mmHg (85-104) L 11/16/16 13:15 ABG HCO3 45.7 mEQ/L (21-27) H 11/16/16 13:15 ABG Total CO2 48.6 mEq/L (20-26) H 11/16/16 13:15 ABG O2 Saturation 90 % (95-98) L 11/16/16 13:15 ABG Base Excess 14.1 mEq/L (-2.0 to 3.0) H 11/16/16 13:15 Chloride 96 mEq/L (98-109) L 11/16/16 00:55 Carbon Dioxide 36 mEq/L (19-29) H 11/16/16 00:55 Glucose 200 mg/dL (70-99) H 11/16/16 00:55 POC Glucose 222 (58-89) H 11/15/16 16:27 Hemoglobin A1c 8.5 % (-5.6) H 11/16/16 00:55 Ur Specific [place] 1.027 (1.010-1.025) H 11/15/16 18:11 Urine Protein 30 mg/dL (Neg-Trace) H 11/15/16 18:11 Urine Glucose (UA) 100 mg/dL (Normal) H 11/15/16 18:11 Urine Microscopic RBC 3-5 per hpf (0-3) H 11/15/16 18:11 Ur Squamous Epith Cells Many per lpf (None-Few) H 11/15/16 18:11 Consult Discharge Plan - Plan Referrals: Adam Zapata MD [Primary Care Provider] -
--- NOTE | 2016-11-16 17:03 | Electrocardiograph Report ---
[place] [id number] Test Date: 2016-11-15 Pat Name: Jonathon Yin Department: 105 Room: 2N2 Gender: M Plant Maintenance Manager: : 1960 Requested By: Giuliano Urbano Order Number: [id number] Reading MD: Dg Costello Measurements Intervals [place] Rate: 76 P: 47 [place]: 146 QRS: 4 QRSD: 114 T: 44 QT: 377 QTc: 408 Interpretive Statements SINUS RHYTHM INFERIOR MYOCARDIAL INFARCTION, PROBABLY OLD Electronically Signed On 11-16-2016 17:01:19 EDT by Dg Costello
[2016-11-17 05:44] LABS: BUN/Creatinine Ratio 17 (6-26); Blood Urea Nitrogen 12 mg/dL (8-26); Carbon Dioxide 36 mEq/L (19-29); Chloride 98 mEq/L (98-109); Glucose 198 mg/dL (70-99); Osmolality,Calculated 297 (280-300); Potassium 4.2 mEq/L (3.5-4.5); Sodium 141 mEq/L (136-145); eGFR For African Americans > 60 (> 60); eGFR For Non-African Americans > 60 (> 60)
[2016-11-17] MEDS: *HR* Enoxaparin 40 MG/0.4 ML SYRINGE SQ SCH (06:33)
[2016-11-17] MEDS: Aspirin 325 MG TABLET PO SCH (08:05)
[2016-11-17] MEDS: Famotidine 20 MG TABLET PO SCH (08:05)
[2016-11-17] MEDS: Fenofibrate 54 MG TABLET PO SCH (08:05)
[2016-11-17] MEDS: Insulin LISPRO 300 UNITS/3 ML VIAL SQ SCH ×4 (08:05→20:32)
[2016-11-17] MEDS: Insulin DETEMIR 100 UNIT/ML X5UNITS SQ SCH ×2 (08:06→20:30)
[2016-11-17] MEDS: Lisinopril 20 MG TABLET PO SCH (08:06)
--- NOTE | 2016-11-17 09:56 | Carotid Imaging Report ---
Carotid Duplex Patient Name:Jonathon Yin Order Number:[id number] Procedure Date:11/16/2016 Date:9Age:56 yrs Gender:Male Location:[facility] Room #: 2NE32 Registered Occupational Therapist:Magali Negron Referring MD:Isabel Duckworth CNP hazardous waste material technician:Adam Zapata MD Reading MD:Pranay Keith MD Risk Factors Yes/No Hypertension Yes Diabetes Yes Smoker Previous Yes Impressions: Findings: Bilateral carotid system has nonstenotic plaque. Recommendations: After imaging the patient returned to their room. Findings Carotid Duplex: Right: The right proximal common carotid artery has a PSV of 94 cm/s and a EDV of 25 cm/s. The right mid common carotid artery has a PSV of 114 cm/s and a EDV of 33 cm/s. The right distal common carotid artery has a PSV of 97 cm/s and a EDV of 30 cm/s. There is nonstenotic plaque in the right bifurcation with a PSV of 65 cm/s and a EDV of 23 cm/s. There is smooth heterogeneous plaque. The right proximal internal carotid artery has a PSV of 92 cm/s and a EDV of 39 cm/s. There is 40-59% stenosis in the right mid internal carotid artery with a PSV of 162 cm/s and a EDV of 64 cm/s. There is smooth heterogeneous plaque. The right distal internal carotid artery has a PSV of 105 cm/s and a EDV of 46 cm/s. The right eca has a PSV of 119 cm/s and a EDV of 11 cm/s. The right vertebral artery has a PSV of 94 cm/s and a EDV of 35 cm/s. Left: The left proximal common carotid artery has a PSV of 109 cm/s and a EDV of 29 cm/s. The left mid common carotid artery has a PSV of 95 cm/s and a EDV of 25 cm/s. The left distal common carotid artery has a PSV of 92 cm/s and a EDV of 30 cm/s. There is nonstenotic plaque in the left bifurcation with a PSV of 103 cm/s and a EDV of 36 cm/s. There is smooth heterogeneous plaque. The left proximal internal carotid artery has a PSV of 89 cm/s and a EDV of 35 cm/s. The left mid internal carotid artery has a PSV of 80 cm/s and a EDV of 27 cm/s. The left distal internal carotid artery has a PSV of 109 cm/s and a EDV of 58 cm/s. The left eca has a PSV of 126 cm/s and a EDV of 14 cm/s. The left vertebral artery has a PSV of 94 cm/s and a EDV of 43 cm/s. Carotid Results Right PSV EDV Assessment Proximal CCA 94 25 Mid CCA 114 33 Distal CCA 97 30 Bifurcation 65 23 Proximal ICA 92 39 Mid ICA 162 64 Distal ICA 105 46 ECA 119 11 Vertebral Artery 94 35 Left PSV EDV Assessment Proximal CCA 109 29 Mid CCA 95 25 Distal CCA 92 30 Bifurcation 103 36 Proximal ICA 89 35 Mid ICA 80 27 Distal ICA 109 58 ECA 126 14 Vertebral Artery 94 43 Ratio's Right ICA/CCA Ratio: 1.40 ICA/CCA Values: 162/114 Left ICA/CCA Ratio: 1.14 ICA/CCA Values: 109/95 Updated by Pranay Keith MD on 11/17/2016 9:49:27 AM electronically signed on 11/17/2016 9:51:15 AM with status of Final
--- NOTE | 2016-11-17 14:39 | Internal Med Progress Note ---
<Abhi Alva - Last Filed: 11/17/16 17:15> Date of Encounter: 11/17/16 Time of Encounter: 10:00 - Assessment and plan (1) Acute and chronic respiratory failure with hypoxia Current Visit: Yes Status: Acute Assessment and plan: Likely multifactoral in the setting of COPD, KIRA, obesity, and non compliance with co-morbidities. Patient has history of COPD and KIRA; only uses supplemental oxygen at night and rescue inhalers. Patient has been experiencing frequent falls, on presentation he was hypoxic at 88%. Bronchodilators as needed Continuous SPO2 monitoring Supplemental oxygen, titrate to saturation greater than 90%. ABG showing respiratory acidosis with some compensation. pCO2 95 (11/16/16). Repeat today with pCO2 of 76. Feeling better with use of BiPAP, will hopefully qualify patient tonight and possibly discharge tomorrow. (2) KIRA (obstructive sleep apnea) Current Visit: Yes Status: Chronic Assessment and plan: Family states patient sleeps sitting up in recliner, sometime falls asleep while talking/interacting with others at home. Patient has a history of obstructive sleep apnea however does not wear CPAP/ BiPAP at night. He is on oxygen at 3 L nasal cannula. Continuous pulse ox, continuous cardiac monitoring See respiratory failure for complete plan. (3) Recurrent falls Current Visit: Yes Status: Acute Assessment and plan: Likely secondary to hypercapnia and hypoxia. Echo negative for acute findings. Brain MRI negative. Carotid doppler with 40-59% stenosis in right mid interal carotid (smooth hetergeneous plaque). Seen by Neurology, improving, recommend follow up if needed. (4) Diabetes mellitus Current Visit: Yes Status: Chronic Assessment and plan: Patient states he does not take metformin. Will work to monitor and adjust insulin for better glycemic control. A1C 8.5. Qualifiers: Diabetes mellitus type: type 2 Diabetes mellitus complication status: without complication Diabetes mellitus fci insulin use: with buttermilk drier operator use Qualified Code(s): E11.9 - Type 2 diabetes mellitus without complications ; Z79.4 - correction (current) use of insulin - Time Spent With Patient less than 15 minutes - Subjective Interval history: Mr. Yin appears more awake and alert this AM. He notes that he slept well with the BiPAP. Occasional jerking, that seems to be improving per patient and spouse. - Constitutional Vitals: Temp Pulse Resp BP Pulse Ox 98.4 F 71 16 119/73 92 11/17/16 11:54 11/17/16 11:54 11/17/16 11:54 11/17/16 11:54 11/17/16 11:54 General appearance: Present: cooperative, A&O X 3, no acute distress, obese, answers questions appropriately - Head Head exam: Present: atraumatic, normocephalic - Eye Eye exam: Present: EOMI, conjuntiva pink - ENT ENT exam: Present: mucous membranes moist - Neck Neck exam general surgery: Present: full ROM - Respiratory Respiratory exam: Present: CTAB - Cardiovascular Cardiovascular exam: Present: RRR - GI/Abdominal GI/Abdominal exam: Present: distended, soft. Absent: firm, guarding, tenderness - Extremities Exam Extremities exam: Present: warm. Absent: cyanotic - Neurological Exam Neurological exam: Present: alert, oriented X3, no focal deficits - Psychiatric Psychiatric exam: Present: normal affect, normal mood - Skin Skin exam: Present: normal color, warm. Absent: cyanosis, rash Internal Medicine: Result - Labs CBC & Chem 7: 11/16/16 00:55 11/17/16 04:45 Labs: BMP 11/17/16 04:45 Sodium 141 Potassium 4.2 Chloride 98 Carbon Dioxide 36 H BUN 12 Creatinine 0.71 L Glucose 198 H Calcium 9.0 - ABG Interpretation ABG results: ABG ABG pH 7.29 pH Units (7.32-7.45) L 11/16/16 13:15 ABG pCO2 95 mmHg (35-45) H* 11/16/16 13:15 ABG pO2 66 mmHg (85-104) L 11/16/16 13:15 ABG O2 Saturation 90 % (95-98) L 11/16/16 13:15 - Impressions Impressions Brain MRI 11/16/16 16:06 IMPRESSION: 1. No acute intracranial abnormality. 2. Mild chronic white matter microvascular ischemic changes. D/ / Alec Morales MD / Alec Morales MD Interpreting Provider: Alec Morales MD Consult Discharge Plan - Plan Referrals: Adam Zapata MD [Primary Care Provider] - 11/25/16 8:00 am <Timothy Hsieh P - Last Filed: 11/17/16 18:26> Date of Encounter: 11/17/16 - Constitutional Vitals: Temp Pulse Resp BP Pulse Ox 98.1 F 79 16 125/68 92 11/17/16 15:56 11/17/16 15:56 11/17/16 15:56 11/17/16 15:56 11/17/16 15:56 Internal Medicine: Result - Labs CBC & Chem 7: 11/16/16 00:55 11/17/16 04:45 Labs: BMP 11/17/16 04:45 Sodium 141 Potassium 4.2 Chloride 98 Carbon Dioxide 36 H BUN 12 Creatinine 0.71 L Glucose 198 H Calcium 9.0 - ABG Interpretation ABG results: ABG ABG pH 7.34 pH Units (7.32-7.45) 11/17/16 16:40 ABG pCO2 76 mmHg (35-45) H* 11/17/16 16:40 ABG pO2 71 mmHg (85-104) L 11/17/16 16:40 ABG O2 Saturation 93 % (95-98) L 11/17/16 16:40 - Impressions Impressions Brain MRI 11/16/16 16:06 IMPRESSION: 1. No acute intracranial abnormality. 2. Mild chronic white matter microvascular ischemic changes. D/ / Alec Morales MD / Alec Morales MD Interpreting Provider: Alec Morales MD - Attending Attestation I examined this patient and my medical decision-making was reviewed with the PROPULSION GENERATOR REPAIRER/PA/Advanced Practice Nurse/Resident Physician. I agree with the documented findings, disposition and treatment plan as described except to the extent set forth below.
--- NOTE | 2016-11-17 15:52 | Neurology Progress Note ---
Date of Encounter: 11/17/16 Time of Encounter: 15:50 Assessment and Plan (1) Recurrent falls Current Visit: Yes Status: Acute I am convinced that most of the problems that on this gentleman had that resulted in this admission were due to complications of hypercapnia. I did, once again stressed compliance. At this juncture I will hold off on starting any antiepileptic medications. If he has other falls or jerks then I might anticipate a trial of valproate. Otherwise I will reevaluate him at your request. Subjective Interval history: The chart was reviewed, patient was seen and examined. Patient just walking out of the bathroom holding his IV pole. Ambulate without difficulty. No exertional dyspnea identified. Patient apparently had some somnolence last night. He denies any further jerking episodes of falls. Denies any headaches today, denies any shortness of breath or any other difficulty. MRI scan of the brain does not reveal evidence of any acute infarct. No other acute processes identified. Objective - Constitutional Vitals: Temp Pulse Resp BP Pulse Ox 98.4 F 71 16 119/73 92 11/17/16 11:54 11/17/16 11:54 11/17/16 11:54 11/17/16 11:54 11/17/16 11:54 - Neurological Exam Motor Examination: Present: full strength in all major muscle groups Motor examination - right side: 5/5: deltoids, biceps, triceps, wrist flexion, wrist extension, risk mgr, hip flexors, tibialis Anterior, quadriceps, toe extension (EHL), plantarflexion Motor examination - left side: 5/5: deltoids, biceps, triceps, wrist flexion, wrist extension, hip flexors, risk mgr, quadriceps, tibialis Anterior, toe extension (EHL), plantarflexion Sensation intact: Present: intact Reflex and gait examination: normal gait Mental Status Examination: Present: awake, alert, oriented to person, oriented to place, oriented to time, follows commands appropriately, answers questions appropriately, no agnosia, no aphasia, no aproxia Cranial nerve examination: Present: PERRL, EOMI, visual dacosta intact, corneal reflexes brisk symmetrically, sensory to face intact, mastication intact, no facial asymmetry is present, no dysarthria, hearing is intact symmetrically, soft palate elevates bilaterally upon phonation, gag reflex intact, flexes SCM and trapezius muscles symmetrically with full power, tongue protrudes midline, no atrophy or facial fasiculations present Cerebellar examination: Present: no dysmetria, performs finger to nose and heel to barron symmetrically without ataxia, no gait ataxia, no truncal ataxia, no difficulty with rapid alternating movements Results - Laboratory Findings CBC and BMP: 11/16/16 00:55 11/17/16 04:45 Abnormal lab findings: Abnormal lab results MCHC 29.4 g/dL (31.6-35.5) L 11/16/16 00:55 RDW 15.9 % (11.5-14.5) H 11/16/16 00:55 Plt Count 126 K/mcL (140-400) L 11/16/16 00:55 ABG pH 7.29 pH Units (7.32-7.45) L 11/16/16 13:15 ABG pCO2 95 mmHg (35-45) H* 11/16/16 13:15 ABG pO2 66 mmHg (85-104) L 11/16/16 13:15 ABG HCO3 45.7 mEQ/L (21-27) H 11/16/16 13:15 ABG Total CO2 48.6 mEq/L (20-26) H 11/16/16 13:15 ABG O2 Saturation 90 % (95-98) L 11/16/16 13:15 ABG Base Excess 14.1 mEq/L (-2.0 to 3.0) H 11/16/16 13:15 Carbon Dioxide 36 mEq/L (19-29) H 11/17/16 04:45 Creatinine 0.71 mg/dL (0.72-1.25) L 11/17/16 04:45 Glucose 198 mg/dL (70-99) H 11/17/16 04:45 POC Glucose 277 (58-89) H 11/17/16 11:58 Hemoglobin A1c 8.5 % (-5.6) H 11/16/16 00:55 Ur Specific [place] 1.027 (1.010-1.025) H 11/15/16 18:11 Urine Protein 30 mg/dL (Neg-Trace) H 11/15/16 18:11 Urine Glucose (UA) 100 mg/dL (Normal) H 11/15/16 18:11 Urine Microscopic RBC 3-5 per hpf (0-3) H 11/15/16 18:11 Ur Squamous Epith Cells Many per lpf (None-Few) H 11/15/16 18:11 Consult Discharge Plan - Plan Referrals: Adam Zapata MD [Primary Care Provider] - 11/25/16 8:00 am
[2016-11-17] MEDS: Acetaminophen 325 MG TABLET PO PRN (16:46)
[2016-11-17 16:49] LABS: ABG Base Excess 11.6 mEq/L (-2.0 to 3.0); ABG Oxygen Saturation 93 % (95-98); ABG PH 7.34 pH Units (7.32-7.45); ABG PO2 71 mmHg (85-104); ABG TCO2 43.3 mEq/L (20-26)
[2016-11-17 16:56] LABS: ABG PCO2 76 mmHg (35-45)
[2016-11-17 16:57] LABS: Blood Gas FiO2 31 %
[2016-11-18] MEDS: *HR* Enoxaparin 40 MG/0.4 ML SYRINGE SQ SCH (06:00)
[2016-11-18 06:10] LABS: ABG Base Excess 13.5 mEq/L (-2.0 to 3.0); ABG HCO3 44.3 mEQ/L (21-27); ABG Oxygen Saturation 91 % (95-98); ABG PH 7.32 pH Units (7.32-7.45); ABG PO2 66 mmHg (85-104); ABG TCO2 46.9 mEq/L (20-26)
[2016-11-18 06:13] LABS: ABG PCO2 86 mmHg (35-45); Blood Gas FiO2 32 %
[2016-11-18 07:27] VITALS: BP 139/73
[2016-11-18] MEDS: Fenofibrate 54 MG TABLET PO SCH (08:31)
[2016-11-18] MEDS: Famotidine 20 MG TABLET PO SCH (08:31)
[2016-11-18] MEDS: Insulin LISPRO 300 UNITS/3 ML VIAL SQ SCH ×2 (08:32→11:49)
[2016-11-18] MEDS: Insulin DETEMIR 100 UNIT/ML X5UNITS SQ SCH (08:32)
[2016-11-18] MEDS: Lisinopril 20 MG TABLET PO SCH (08:32)
[2016-11-18] MEDS: Aspirin 325 MG TABLET PO SCH (08:32)
[2016-11-18] MEDS: Acetaminophen 325 MG TABLET PO PRN (08:32)
--- NOTE | 2016-11-18 08:43 | Discharge Summary ---
<Abhi Alva - Last Filed: 11/19/16 00:57> Date of Encounter: 11/19/16 Time of Encounter: 09:10 - Discharge Diagnosis (1) Acute and chronic respiratory failure with hypoxia Priority: Primary Status: Acute (2) KIRA (obstructive sleep apnea) Priority: Secondary Status: Chronic (3) Recurrent falls Priority: Secondary Status: Acute (4) Diabetes mellitus Priority: Secondary Status: Chronic Qualifiers: Diabetes mellitus type: type 2 Diabetes mellitus complication status: without complication Diabetes mellitus keno terminal operator insulin use: with mcfp use Qualified Code(s): E11.9 - Type 2 diabetes mellitus without complications ; Z79.4 - keno terminal operator (current) use of insulin - Discharge Medications Home Medications: Oxygen 1 each .ROUTE AD 10/15/16 [History] Albuterol Sulfate [Albuterol Inhaler] 2 puff IH Q4H PRN 11/15/16 [History] Amitriptyline [Elavil] 10 mg PO HS PRN 11/15/16 [History] Fenofibrate Nanocrystallized [Triglide] 160 mg PO DAILY 11/15/16 [History] Fish Oil/Dha/Epa [Fish Oil 1,200 mg Fish Oil] 1 each PO BID 11/15/16 [History] Furosemide [Lasix] 20 mg PO DAILY PRN 11/15/16 [History] Insulin ASPART [Novolog Flexpen] 35 unit SQ TIDWM 11/15/16 [History] Insulin Glargine,Hum.rec.anlog [Lantus Solostar] 50 unit SQ BID 11/15/16 [ History] Lisinopril [Zestril] 40 mg PO DAILY 11/15/16 [History] Pravastatin Sodium [Pravachol] 40 mg PO HS 11/15/16 [History] Ranitidine HCl [Zantac] 300 mg PO QAM 11/15/16 [History] SitaGLIPtin [Januvia] 100 mg PO DAILY 11/15/16 [History] Allergies/Adverse Reactions: Allergies No Known Allergies Allergy (Unverified 10/15/16 16:28) Procedures/tests Complete & Pending: Procedures Performed prior 72 hours Category Date Time Status MR head/brain wo con [MR] Stat MRI 11/16/16 16:06 Completed EV carotid duplex imaging BI Routine Y 05/22/17 17:24 Completed EV echocardiogram w enhance Routine Y 11/16/16 17:23 Completed Date of admission: 11/15/16 14:50 Primary care physician: Adam Zapata MD Consults: 11/15/16 15:24 Consult to Neurology [CONS] Routine Consulting Provider: [facility] Reason for Consult: falls,lower extremity weakness Time Notified: 15:27 Call Completed: Yes 11/15/16 15:30 Consult to Pulmonology [CONS] Routine Consulting Provider: [facility] Reason for Consult: KIRA, hypoxia Time Notified: 15:31 Call Completed: Yes Discharging clinician: Timothy Hsieh Anticipated date of discharge: 11/18/16 - Patient Status Disposition: Home, Self-Care Condition: Good Functional capacity at discharge: independent ambulation Overall status at discharge: patient is progressing back to baseline - Discharge Instructions Instructions: Transient Ischemic Attack (DC), Transient Ischemic Attack (GEN), Sleep Apnea Syndrome (DC), Sleep Apnea Syndrome (GEN), Diabetes Mellitus Type 2 in Adults (DC), Fall Prevention for Older Adults (GEN), Chronic Hypertension (DC ), Sleep Apnea Syndrome, Admin Secretary (GEN), Transient Ischemic Attack, Admin Secretary (GEN) Follow Up With: Adam Zapata MD [Primary Care Provider] - 11/25/16 8:00 am Forms: Inpatient Work/School Release Additional Instructions: Use BiPAP at night or while napping. Follow up with PCP in 5-7 days or sooner if needed. Seek medical care, inform family to seek care for you, if you develop respiratory difficulty, become confused, or are abnormally drowsy/difficult to wake. - Diet and Activity Activity: increase activity as tolerated Diet: diabetic diet Interval History: Stable on 2L supplemental oxygen, no acute distress. Patient feels comfortable with discharge home. Hospital course: Mr. Yin is a 56 year old male with PMHx of hypertension, diabetes, COPD, and obstructive sleep apnea. That presented to the ED for recurrent falls at night. Patient reports history of abnormal sleep study, but notes could not tolerate CPAP machine and compromised with wearing oxygen at night via nasal cannula. Patient denied loss of consciousness, incontinence of bowel or bladder. Patient's noted tremors/jerks with previous fall. He sleeps in a recliner unable to lie flat He also has history of COPD with inhaler use. He denies using oxygen during the day due to his strict job requirements. Denied chest pain, cough, sputum production. He did admit to exertional shortness of breath. Reported 4 episodes of falling during the night prior to admission. In the ED pulse ox of 88%. ABG ordered showing pCO2 high at 96, patient with respiratory acidosis with some metabolic compensation. Imaging negative for acute findings. TIA workup initated and Neurology consulted for concern of tremor/jerks with recurrent falls. MRI negative, neurology agreed patient's symptoms likely related to hypercapnia and hypoxia. Patient was reluctant at first to CPAP/BiPAP with mask, but tried BiPAP overnight with firemen's mask. He reported sleeping well through the night and feeling more awake and rested the next morning. Repeat ABG was 76. BiPAP qualifications completed and patient feels comfortable with discharge at this time. He is agreeable to wear BiPAP mask. Advised not to operate or drive machinery if feeling tired, short of breath, or having tremors. Patient returns to baseline off oxygen and maintains saturation of 92-95% on supplemental O2. CT and MRI of head was negative for any intracranial abnormalities. EKG nonspecific ST-T wave changes to leads 3 and aVF and aVL. SPO2 on 3 L nasal cannula increased 90-95%. Echo with LVEF of 65%, no valvular dysfunction noted. Carotid doppler: 40-59% stenosis of right mid internal carotid artery. - Time Spent with Patient Total time spent providing and/or coordinating discharge services: Greater than 30 minutes (35m) - Constitutional Vitals: Temp Pulse Resp BP Pulse Ox 98.6 F 82 16 139/73 92 11/18/16 07:23 11/18/16 07:23 11/18/16 07:23 11/18/16 07:23 11/18/16 07:23 General appearance: Present: cooperative, A&O X 3, no acute distress, obese, answers questions appropriately - Head Head exam: Present: atraumatic, normocephalic - Eye Eye exam: Present: EOMI, conjuntiva pink, sclera anicteric - ENT ENT exam: Present: mucous membranes moist - Neck Neck exam general surgery: Present: full ROM, supple - Respiratory Respiratory exam: Present: CTAB - Cardiovascular Cardiovascular exam: Present: RRR (mildly tachy at times.) - GI/Abdominal GI/Abdominal exam: Present: distended, soft. Absent: guarding, rigid - Extremities Exam Extremities exam: Absent: tenderness - Neurological Exam Neurological exam: Present: alert, oriented X3, no focal deficits - Psychiatric Psychiatric exam: Present: normal affect, normal mood - Skin Skin exam: Present: dry, normal color, warm. Absent: cyanosis, rash <Мария,Timothy P - Last Filed: 11/19/16 18:34> Date of Encounter: 11/19/16 Procedures/tests Complete & Pending: Procedures Performed prior 72 hours Category Date Time Status MR head/brain wo con [MR] Stat MRI 11/16/16 16:06 Completed EV carotid duplex imaging BI Routine Y 11/16/16 17:24 Completed EV echocardiogram w enhance Routine Y 11/16/16 17:23 Completed Date of admission: 11/15/16 14:50 Primary care physician: Adam Zapata MD Consults: 11/15/16 15:24 Consult to Neurology [CONS] Routine Consulting Provider: [facility] Reason for Consult: falls,lower extremity weakness Time Notified: 15:27 Call Completed: Yes 11/15/16 15:30 Consult to Pulmonology [CONS] Routine Consulting Provider: [facility] Reason for Consult: KIRA, hypoxia Time Notified: 15:31 Call Completed: Yes Hospital course: Mr. Yin is a 56 year old male - Time Spent with Patient Total time spent providing and/or coordinating discharge services: - Constitutional Vitals: Temp Pulse Resp BP Pulse Ox 98.6 F 82 16 139/73 92 11/18/16 07:23 11/18/16 07:23 11/18/16 07:23 11/18/16 07:23 11/18/16 07:23 - Attending Attestation I examined this patient and my medical decision-making was reviewed with the FITTINGS TIGHTENER/PA/Advanced Practice Nurse/Resident Physician. I agree with the documented findings, disposition and treatment plan as described except to the extent set forth below. Observation order placed as per recommendation of utilization review. Utilization review recommended observation order on 11/17/2016. 11/17/2016 who was my first service and it was extremely difficult to cope Up with the work and that is the reason this order was placed next day. off note : on 11/17/2016 I had the 2 patients transferred to ICU from the floor.
== END 2016-11-18 13:12 | disposition home or self-care (01) ==
LOC: 2NENU 10:43 → EMEROO 10:43 → SUATTDRO 14:50 → 2NENU 16:05
PROVIDERS: ADMIT Internal Medicine Sleep Medicine; ATTEND Internal Medicine

== ENCOUNTER 2020-06-07 20:39 | Inpatient (IN) ==
[2020-06-07] MEDS ORDERED: Isovue-370 500 ML BOTTLE IVP ONE (20:51)
[2020-06-07] MEDS ORDERED: Ondansetron 4 MG/2 ML VIAL IVP ONE (20:57)
[2020-06-07 21:19] LABS: Basophils % 0.5 %; Hematocrit 42.5 % (37.5-50.1); Hemoglobin 13.7 g/dL (12.9-16.9); Immature Granulocytes % 1.1 % (0-4); Lymphocytes # 0.5 K/mcL (0.6-4.6); Lymphocytes % 13.7 %; Mean Corpuscular HGB Conc 32.2 g/dL (31.6-35.5); Mean Corpuscular Hemoglobin 30.2 pg (28.0-33.3); Mean Corpuscular Volume 93.6 fL (83.0-100.0); Mean Platelet Volume 11.9 fL (9.4-12.4); Monocytes # 0.2 K/mcL (0.0-1.3); Monocytes % 5.8 %; Platelet Count 125 K/mcL (140-400); Red Blood Count 4.54 M/mcL (4.19-5.50); Red Cell Distribution Width 14.3 % (11.5-14.5); Segmented Neutrophils % 78.9 %; White Blood Count 3.8 K/mcL (4.3-11.1)
[2020-06-07] MEDS ORDERED: cefTRIAXone 1,000 MG in Water for inj. (sterile) 10 ML IVP ONE (21:30)
[2020-06-07] MEDS ORDERED: Azithromycin 500 MG in 0.9 % Sodium Chloride 250 ML IVPB ONE (21:30)
[2020-06-07] MEDS ORDERED: Dexamethasone 4 MG/ML VIAL IVP ONE (21:30)
[2020-06-07 21:40] LABS: Alanine Aminotransferase 17 Units/L (7-52); Albumin 3.8 g/dL (3.5-5.7); Alkaline Phosphatase 43 Units/L (34-104); Aspartate Amino Transferase 19 Units/L (13-39); BUN/Creatinine Ratio 22 (6-26); Bilirubin,Total 0.4 mg/dL (0.3-1.0); Blood Urea Nitrogen 14 mg/dL (8-23); Calcium 8.6 mg/dL (8.6-10.3); Carbon Dioxide 32 mEq/L (23-29); Chloride 96 mEq/L (98-107); Globulin 3.7 g/dL (2.4-3.5); Glucose 179 mg/dL (70-105); Osmolality,Calculated 283 (280-300); Potassium 3.9 mEq/L (3.5-5.1); Sodium 134 mEq/L (136-145); Total Protein 7.5 g/dL (6.4-8.9); Troponin I < 0.03 ng/mL (< 0.04); eGFR For African Americans > 60 (> 60); eGFR For Non-African Americans > 60 (> 60)
[2020-06-07 21:58] LABS: Ferritin 247 ng/mL (20-250)
[2020-06-07] MEDS ORDERED: Ipratropium/Albuterol Neb 3 ML IH ONE (22:35)
[2020-06-07] MEDS ORDERED: Naloxone 0.4 MG/ML INJ IVP PRN (23:46)
[2020-06-07] MEDS ORDERED: Ondansetron 4 MG/2 ML VIAL IVP PRN (23:46)
[2020-06-08] MEDS ORDERED: D5% in Water 1,000 ML IVC PRN (07:21)
[2020-06-08] MEDS ORDERED: *HR* Dextrose 50 % in Water (Vial) 50 ML VIAL IVP PRN (07:21)
[2020-06-08] MEDS ORDERED: Dextrose Gel 15 GM/37.5 ML TUBE PO PRN ×2 (07:21)
[2020-06-08] MEDS: Dexamethasone Sodium Phos/PF 10 MG/ML VIAL IVP SCH (08:01)
[2020-06-08 08:23] LABS: Hematocrit 41.9 % (37.5-50.1); Hemoglobin 13.2 g/dL (12.9-16.9); Lymphocytes % 12.3 %; Mean Corpuscular HGB Conc 31.5 g/dL (31.6-35.5); Mean Corpuscular Hemoglobin 29.5 pg (28.0-33.3); Mean Corpuscular Volume 93.7 fL (83.0-100.0); Red Blood Count 4.47 M/mcL (4.19-5.50); Red Cell Distribution Width 14.4 % (11.5-14.5)
[2020-06-08 08:24] LABS: Basophils % 0.8 %; Immature Granulocytes % 1.5 % (0-4); Immature Platelets 10.7 % (1.1-6.1); Lymphocytes # 0.5 K/mcL (0.6-4.6); Mean Platelet Volume 11.9 fL (9.4-12.4); Monocytes # 0.2 K/mcL (0.0-1.3); Monocytes % 5.4 %; Neutrophils # 3.1 K/mcL (1.6-8.9); Platelet Count 115 K/mcL (140-400); White Blood Count 3.9 K/mcL (4.3-11.1)
[2020-06-08 08:40] LABS: Alanine Aminotransferase 12 Units/L (7-52); Albumin 3.6 g/dL (3.5-5.7); Alkaline Phosphatase 43 Units/L (34-104); Aspartate Amino Transferase 15 Units/L (13-39); BUN/Creatinine Ratio 26 (6-26); Bilirubin,Total 0.4 mg/dL (0.3-1.0); Blood Urea Nitrogen 21 mg/dL (8-23); Calcium 8.7 mg/dL (8.6-10.3); Carbon Dioxide 29 mEq/L (23-29); Chloride 96 mEq/L (98-107); Globulin 3.6 g/dL (2.4-3.5); Glucose 277 mg/dL (70-105); Lactate Dehydrogenase 173 Units/L (140-271); Osmolality,Calculated 291 (280-300); Potassium 4.5 mEq/L (3.5-5.1); Sodium 134 mEq/L (136-145); Total Protein 7.2 g/dL (6.4-8.9); eGFR For African Americans > 60 (> 60); eGFR For Non-African Americans > 60 (> 60)
[2020-06-08 08:57] LABS: Ferritin 258 ng/mL (20-250)
[2020-06-08] MEDS: Insulin LISPRO 300 UNITS/3 ML VIAL SQ SCH ×4 (09:32→20:41)
[2020-06-08] MEDS: Insulin DETEMIR 100 UNIT/ML X5UNITS SQ SCH ×2 (09:32→20:40)
[2020-06-08] MEDS: Ipratropium 1 PUFF INHALER IH SCH ×4 (10:47→20:38)
[2020-06-08] MEDS: Acetaminophen 325 MG TABLET PO PRN (17:38)
[2020-06-08] MEDS: *HR* Heparin 5,000 UNIT/ML VIAL SQ SCH (17:40)
[2020-06-08] MEDS: Azithromycin 500 MG in D5% in Water 250 ML IVPB SCH (20:39)
[2020-06-08] MEDS: cefTRIAXone 1,000 MG in Water for inj. (sterile) 10 ML IVP SCH (20:40)
[2020-06-09] MEDS: Ipratropium 1 PUFF INHALER IH SCH ×7 (00:47→23:59)
[2020-06-09] MEDS: Acetaminophen 325 MG TABLET PO PRN ×2 (00:48→05:19)
[2020-06-09] MEDS: *HR* Heparin 5,000 UNIT/ML VIAL SQ SCH ×2 (05:22→16:51)
[2020-06-09] MEDS ORDERED: Furosemide 20 MG TABLET PO PRN (08:02)
[2020-06-09] MEDS: Dexamethasone Sodium Phos/PF 10 MG/ML VIAL IVP SCH (08:17)
[2020-06-09] MEDS: Insulin LISPRO 300 UNITS/3 ML VIAL SQ SCH ×6 (08:18→19:54)
[2020-06-09] MEDS: Insulin DETEMIR 100 UNIT/ML X5UNITS SQ SCH ×2 (09:05→19:55)
[2020-06-09] MEDS: Gabapentin 400 MG CAPSULE PO SCH ×3 (09:08→19:37)
[2020-06-09 13:53] LABS: Basophils % 0.3 %; Hematocrit 41.6 % (37.5-50.1); Hemoglobin 13.1 g/dL (12.9-16.9); Immature Granulocytes % 0.9 % (0-4); Lymphocytes # 0.6 K/mcL (0.6-4.6); Lymphocytes % 7.2 %; Mean Corpuscular HGB Conc 31.5 g/dL (31.6-35.5); Mean Corpuscular Hemoglobin 30.3 pg (28.0-33.3); Mean Corpuscular Volume 96.1 fL (83.0-100.0); Monocytes # 0.2 K/mcL (0.0-1.3); Monocytes % 2.8 %; Platelet Count 148 K/mcL (140-400); Red Blood Count 4.33 M/mcL (4.19-5.50); Red Cell Distribution Width 14.4 % (11.5-14.5); Segmented Neutrophils % 88.8 %
[2020-06-09 13:57] LABS: White Blood Count 7.9 K/mcL (4.3-11.1)
[2020-06-09] MEDS: cefTRIAXone 1,000 MG in Water for inj. (sterile) 10 ML IVP SCH (19:35)
[2020-06-09] MEDS: Latanoprost 2.5 ML BOTTLE BOTH EYES SCH (19:36)
[2020-06-09] MEDS: Azithromycin 500 MG in D5% in Water 250 ML IVPB SCH (19:36)
[2020-06-10 04:51] LABS: Hematocrit 41.2 % (37.5-50.1); Hemoglobin 12.9 g/dL (12.9-16.9); Mean Corpuscular HGB Conc 31.3 g/dL (31.6-35.5); Mean Corpuscular Hemoglobin 30.3 pg (28.0-33.3); Mean Corpuscular Volume 96.7 fL (83.0-100.0); Platelet Count 155 K/mcL (140-400); Red Blood Count 4.26 M/mcL (4.19-5.50); Red Cell Distribution Width 14.5 % (11.5-14.5); White Blood Count 5.1 K/mcL (4.3-11.1)
[2020-06-10 05:04] LABS: BUN/Creatinine Ratio 28 (6-26); Blood Urea Nitrogen 17 mg/dL (8-23); Calcium 8.6 mg/dL (8.6-10.3); Carbon Dioxide 35 mEq/L (23-29); Chloride 95 mEq/L (98-107); Glucose 156 mg/dL (70-105); Osmolality,Calculated 287 (280-300); Sodium 136 mEq/L (136-145); eGFR For African Americans > 60 (> 60); eGFR For Non-African Americans > 60 (> 60)
[2020-06-10] MEDS: *HR* Heparin 5,000 UNIT/ML VIAL SQ SCH ×2 (07:05→17:21)
[2020-06-10] MEDS: Ipratropium 1 PUFF INHALER IH SCH ×6 (07:59→23:36)
[2020-06-10] MEDS: Gabapentin 400 MG CAPSULE PO SCH ×3 (08:56→21:26)
[2020-06-10] MEDS: Furosemide 20 MG TABLET PO SCH (08:57)
[2020-06-10] MEDS: Insulin DETEMIR 100 UNIT/ML X5UNITS SQ SCH ×2 (08:57→21:29)
[2020-06-10] MEDS: Dexamethasone Sodium Phos/PF 10 MG/ML VIAL IVP SCH (08:57)
[2020-06-10] MEDS: Insulin LISPRO 300 UNITS/3 ML VIAL SQ SCH ×7 (08:58→21:30)
[2020-06-10] MEDS ORDERED: CefTRIAXone 1,000 MG VIAL ONE (20:57)
[2020-06-10] MEDS: cefTRIAXone 1,000 MG in Water for inj. (sterile) 10 ML IVP SCH (21:27)
[2020-06-10] MEDS: Latanoprost 2.5 ML BOTTLE BOTH EYES SCH (21:28)
[2020-06-10] MEDS: Azithromycin 500 MG in D5% in Water 250 ML IVPB SCH (21:28)
[2020-06-11] MEDS: Ipratropium 1 PUFF INHALER IH SCH ×5 (04:32→21:30)
[2020-06-11] MEDS: *HR* Heparin 5,000 UNIT/ML VIAL SQ SCH ×2 (06:39→16:49)
[2020-06-11 06:56] LABS: Hematocrit 40.7 % (37.5-50.1); Hemoglobin 12.6 g/dL (12.9-16.9); Mean Corpuscular Hemoglobin 29.4 pg (28.0-33.3); Mean Corpuscular Volume 94.9 fL (83.0-100.0); Mean Platelet Volume 11.9 fL (9.4-12.4); Platelet Count 165 K/mcL (140-400); Red Blood Count 4.29 M/mcL (4.19-5.50); Red Cell Distribution Width 14.2 % (11.5-14.5)
[2020-06-11 07:15] LABS: BUN/Creatinine Ratio 26 (6-26); Blood Urea Nitrogen 16 mg/dL (8-23); Calcium 8.7 mg/dL (8.6-10.3); Carbon Dioxide 40 mEq/L (23-29); Chloride 95 mEq/L (98-107); Glucose 166 mg/dL (70-105); Osmolality,Calculated 293 (280-300); Potassium 4.2 mEq/L (3.5-5.1); Sodium 139 mEq/L (136-145); eGFR For African Americans > 60 (> 60); eGFR For Non-African Americans > 60 (> 60)
[2020-06-11] MEDS: Insulin DETEMIR 100 UNIT/ML X5UNITS SQ SCH ×2 (08:03→21:11)
[2020-06-11] MEDS: Gabapentin 400 MG CAPSULE PO SCH ×3 (08:04→21:12)
[2020-06-11] MEDS: Furosemide 20 MG TABLET PO SCH (08:04)
[2020-06-11] MEDS: Dexamethasone Sodium Phos/PF 10 MG/ML VIAL IVP SCH (08:04)
[2020-06-11] MEDS: Insulin LISPRO 300 UNITS/3 ML VIAL SQ SCH ×7 (08:04→21:13)
[2020-06-11] MEDS: Azithromycin 500 MG in D5% in Water 250 ML IVPB SCH (21:09)
[2020-06-11] MEDS: cefTRIAXone 1,000 MG in Water for inj. (sterile) 10 ML IVP SCH (21:10)
[2020-06-11] MEDS: Latanoprost 2.5 ML BOTTLE BOTH EYES SCH (21:30)
[2020-06-12] MEDS: Ipratropium 1 PUFF INHALER IH SCH ×4 (00:16→11:50)
[2020-06-12] MEDS: *HR* Heparin 5,000 UNIT/ML VIAL SQ SCH (05:00)
[2020-06-12 05:49] LABS: VBG HCO3 44 mEq/L (21-27); VBG PCO2 56 mmHg (41-51); VBG PO2 120 mmHg (25-50)
[2020-06-12 05:56] LABS: Hematocrit 42.2 % (37.5-50.1); Hemoglobin 13.3 g/dL (12.9-16.9); Mean Corpuscular HGB Conc 31.5 g/dL (31.6-35.5); Mean Corpuscular Hemoglobin 30.1 pg (28.0-33.3); Mean Corpuscular Volume 95.5 fL (83.0-100.0); Mean Platelet Volume 11.9 fL (9.4-12.4); Platelet Count 192 K/mcL (140-400); Red Blood Count 4.42 M/mcL (4.19-5.50); Red Cell Distribution Width 13.9 % (11.5-14.5); White Blood Count 6.3 K/mcL (4.3-11.1)
[2020-06-12 06:07] LABS: BUN/Creatinine Ratio 28 (6-26); Blood Urea Nitrogen 17 mg/dL (8-23); Calcium 9.4 mg/dL (8.6-10.3); Carbon Dioxide 39 mEq/L (23-29); Chloride 95 mEq/L (98-107); Glucose 140 mg/dL (70-105); Osmolality,Calculated 290 (280-300); Potassium 4.2 mEq/L (3.5-5.1); Sodium 138 mEq/L (136-145); eGFR For African Americans > 60 (> 60); eGFR For Non-African Americans > 60 (> 60)
[2020-06-12 06:59] VITALS: BP 127/87
[2020-06-12] MEDS: Insulin LISPRO 300 UNITS/3 ML VIAL SQ SCH ×2 (08:17→08:18)
[2020-06-12] MEDS: Insulin DETEMIR 100 UNIT/ML X5UNITS SQ SCH (08:17)
[2020-06-12] MEDS: Gabapentin 400 MG CAPSULE PO SCH (08:18)
[2020-06-12] MEDS: Furosemide 20 MG TABLET PO SCH (08:18)
[2020-06-12] MEDS: Dexamethasone Sodium Phos/PF 10 MG/ML VIAL IVP SCH (08:18)
== END 2020-06-12 13:56 | disposition home health service (06) | DRG 871 ==
LOC: EMEROOARM 20:39 → CDU 20:39 → SUATTDRO 23:32 → CDU 06-08 00:20
PROVIDERS: ADMIT Internal Medicine; ATTEND Internal Medicine

== ENCOUNTER 2021-12-27 11:30 | Observation (INO) ==
[2021-12-27 13:24] LABS: Basophils % 0.3 %; Eosinophils % 0.4 %; Hematocrit 40.7 % (37.5-50.1); Hemoglobin 12.9 g/dL (12.9-16.9); Immature Granulocytes % 1.2 % (0-4); Lymphocytes # 1.1 K/mcL (0.6-4.6); Lymphocytes % 11.9 %; Mean Corpuscular HGB Conc 31.7 g/dL (31.6-35.5); Mean Corpuscular Hemoglobin 29.4 pg (28.0-33.3); Mean Corpuscular Volume 92.7 fL (83.0-100.0); Monocytes # 0.5 K/mcL (0.0-1.3); Neutrophils # 7.7 K/mcL (1.6-8.9); Platelet Count 157 K/mcL (140-400); Red Blood Count 4.39 M/mcL (4.19-5.50); Red Cell Distribution Width 14.6 % (11.5-14.5); Segmented Neutrophils % 81.2 %; White Blood Count 9.4 K/mcL (4.3-11.1)
[2021-12-27 13:42] LABS: Acetaminophen < 10 mcg/mL (10-20); Alanine Aminotransferase 11 Units/L (7-52); Albumin 3.9 g/dL (3.5-5.7); Albumin/Globulin Ratio 1.1 (1.1-2.2); Alkaline Phosphatase 44 Units/L (34-104); Aspartate Amino Transferase 11 Units/L (13-39); BUN/Creatinine Ratio 14 (6-26); Bilirubin,Direct 0.1 mg/dL (0.0-0.2); Bilirubin,Indirect 0.3 mg/dL (0.0-1.0); Bilirubin,Total 0.4 mg/dL (0.3-1.0); Blood Urea Nitrogen 9 mg/dL (8-23); Calcium 9.2 mg/dL (8.6-10.3); Carbon Dioxide 30 mEq/L (23-29); Chloride 98 mEq/L (98-107); Ethanol < 10 mg/dL (Less than 10); Globulin 3.5 g/dL (2.4-3.5); Glucose 175 mg/dL (70-105); Osmolality,Calculated 287 (280-300); Potassium 3.5 mEq/L (3.5-5.1); Salicylate < 2.5 mg/dL (15.0-30.0); Sodium 137 mEq/L (136-145); Total Protein 7.4 g/dL (6.4-8.9); Troponin I < 0.03 ng/mL (< 0.04); eGFR For African Americans > 60 (> 60); eGFR For Non-African Americans > 60 (> 60)
[2021-12-27 14:54] LABS: Bilirubin,Urine Negative (Negative); Blood,Urine Negative (Negative); Clarity,Urine Clear (Clear); Color,Urine Light-Yellow (Yellow); Glucose,Urine (UA) Normal (Normal); Ketones,Urine Negative (Negative); Leukocyte Esterase,Urine Negative (Negative); Nitrite,Urine Negative (Negative); PH,Urine 8.5 pH Units (5.0-8.0); Protein,Urine >=300 mg/dL (Neg-Trace); RBC,Urine 0-3 per hpf (0-3); Specific Gravity,Urine 1.015 (1.010-1.025); Squamous Epithelial Cell,Urine Few per hpf (None-Few); Urobilinogen,Urine Normal (Normal); WBC,Urine 0-3 per hpf (0-3)
[2021-12-27 15:02] LABS: Amphetamine Screen,Urine Negative ng/mL (Cutoff=1000); Barbiturate Screen,Urine Negative ng/mL (Cutoff=200); Benzodiazepines Screen,Urine Negative ng/mL (Cutoff=200); Cannabinoid Screen,Urine Negative ng/mL (Cutoff = 50); Cocaine Screen,Urine Negative ng/mL (Cutoff= 300); Opiate Screen,Urine Negative ng/mL (Cutoff=300); Phencyclidine Screen,Urine Negative ng/mL (Cutoff=25)
[2021-12-27] MEDS ORDERED: Dextrose Gel 15 GM/37.5 ML TUBE PO PRN ×2 (17:47)
[2021-12-27] MEDS ORDERED: D5% in Water 1,000 ML IVC PRN (17:47)
[2021-12-27] MEDS ORDERED: Naloxone 0.4 MG/ML INJ IVP PRN (17:47)
[2021-12-27] MEDS ORDERED: *HR* Dextrose 50 % in Water (Syg) 50 ML SYRINGE IVP PRN (17:47)
[2021-12-27] MEDS ORDERED: Ondansetron ODT 4 MG TAB.RAPDIS SL PRN (17:47)
[2021-12-27 20:04] LABS: Estimated Average Glucose 146 mg/dl; Hemoglobin A1C 6.7 %
[2021-12-27] MEDS: Insulin LISPRO 300 UNITS/3 ML VIAL SUBQ SCH (20:44)
[2021-12-28 08:11] LABS: Basophils % 0.4 %; Eosinophils # 0.1 K/mcL (0.0-0.6); Eosinophils % 0.8 %; Hematocrit 43.1 % (37.5-50.1); Hemoglobin 13.6 g/dL (12.9-16.9); Immature Granulocytes % 1.3 % (0-4); Lymphocytes # 1.1 K/mcL (0.6-4.6); Mean Corpuscular HGB Conc 31.6 g/dL (31.6-35.5); Mean Corpuscular Hemoglobin 29.1 pg (28.0-33.3); Mean Corpuscular Volume 92.1 fL (83.0-100.0); Monocytes # 0.4 K/mcL (0.0-1.3); Monocytes % 4.4 %; Neutrophils # 6.7 K/mcL (1.6-8.9); Platelet Count 164 K/mcL (140-400); Red Blood Count 4.68 M/mcL (4.19-5.50); Red Cell Distribution Width 15.2 % (11.5-14.5); Segmented Neutrophils % 80.1 %; White Blood Count 8.4 K/mcL (4.3-11.1)
[2021-12-28] MEDS ORDERED: Albuterol 2.5 MG/3 ML NEBULIZER IH PRN (08:20)
[2021-12-28 08:26] LABS: Alanine Aminotransferase 11 Units/L (7-52); Albumin/Globulin Ratio 1.3 (1.1-2.2); Alkaline Phosphatase 52 Units/L (34-104); Aspartate Amino Transferase 14 Units/L (13-39); BUN/Creatinine Ratio 14 (6-26); Bilirubin,Total 0.5 mg/dL (0.3-1.0); Blood Urea Nitrogen 9 mg/dL (8-23); Carbon Dioxide 29 mEq/L (23-29); Chloride 99 mEq/L (98-107); Globulin 3.2 g/dL (2.4-3.5); Glucose 194 mg/dL (70-105); Magnesium 1.6 mg/dL (1.6-2.6); Osmolality,Calculated 286 (280-300); Phosphorous 2.9 mg/dL (2.7-4.5); Potassium 3.6 mEq/L (3.5-5.1); Sodium 136 mEq/L (136-145); Total Protein 7.2 g/dL (6.4-8.9); eGFR For African Americans > 60 (> 60); eGFR For Non-African Americans > 60 (> 60)
[2021-12-28] MEDS ORDERED: Insulin DETEMIR 100 UNIT/ML X5UNITS SUBQ SCH ×2 (09:00→18:00)
[2021-12-28] MEDS: Insulin LISPRO 300 UNITS/3 ML VIAL SUBQ SCH ×6 (09:43→22:01)
[2021-12-28] MEDS: lisinopriL 20 MG TABLET PO SCH (09:44)
[2021-12-28] MEDS: Fenofibrate 54 MG TABLET PO SCH (09:44)
[2021-12-28] MEDS: Gabapentin 400 MG CAPSULE PO SCH ×4 (09:45→22:26)
[2021-12-28] MEDS: Tiotropium 10 INH DOSE IH SCH (10:58)
[2021-12-28] MEDS: Budesonide/Formoterol 160/4.5 1 PUFF INH IH SCH ×2 (10:58→19:45)
[2021-12-28] MEDS ORDERED: Latanoprost 2.5 ML BOTTLE BOTH EYES SCH (21:00)
[2021-12-29] MEDS: Tiotropium 10 INH DOSE IH SCH (07:22)
[2021-12-29] MEDS: Budesonide/Formoterol 160/4.5 1 PUFF INH IH SCH (07:22)
[2021-12-29] MEDS: Insulin LISPRO 300 UNITS/3 ML VIAL SUBQ SCH ×2 (07:34→08:05)
[2021-12-29] MEDS: lisinopriL 20 MG TABLET PO SCH (08:05)
[2021-12-29] MEDS: Fenofibrate 54 MG TABLET PO SCH (08:05)
[2021-12-29] MEDS: Gabapentin 400 MG CAPSULE PO SCH ×2 (08:05→08:07)
[2021-12-29] MEDS ORDERED: Insulin DETEMIR 100 UNIT/ML X5UNITS SUBQ SCH (09:00)
[2021-12-29 10:03] VITALS: BP 132/91; PULSE 81; TEMP 98.2; O2SAT 93
== END 2021-12-29 12:46 | disposition home health service (06) ==
LOC: 3BNU 11:30 → EMEROOARM 11:30 → SUATTDRO 16:32 → 3BNU 17:14
PROVIDERS: ADMIT General Practice; ATTEND Internal Medicine